=== PATIENT | female | born 1955 | race African-American/Black ===

== ENCOUNTER 2017-02-10 11:53 | Emergency (ER) | payer BC, MEDICARE, OTHER ==
[~2017-02-10] VITALS: Ht 160 cm; Wt 72.5 kg
[~2017-02-10 11:53] MED LIST: 1-ME1LIQ OR; ASPI81TA82 PO; HYDR-3533 PO; LOVA40TA OR; NORC7.5T PO; TOPR100T15 PO
[2017-02-10 11:55] VITALS: BP 136/76; PULSE 88; RESP 20; TEMP 97.8; O2SAT 98
[2017-02-10] MEDS ORDERED: HYDROmorphone HCL PF 1 MG/ML VIAL IM ONE (12:15)
[2017-02-10] MEDS ORDERED: ONDANSETRON ODT 4 MG TAB PO ONE (12:15)
[2017-02-10] MEDS ORDERED: ASPI81CH CHEW (12:18)
[2017-02-10] MEDS ORDERED: LISI40TA PO (12:18)
[2017-02-10] MEDS ORDERED: POTA-255 (12:18)
[2017-02-10] MEDS ORDERED: LOVA40TA PO (12:18)
--- NOTE | 2017-02-10 12:30 | PD ---
HPI Chief Complaint: Headache Time Seen by Provider: 12:08 Travel History International Travel<30 days: No Contact w/Intl Traveler<30days: No Traveled to known affect area: No History of Present Illness HPI PATIENT C/O HEADACHE, 5/10, TOP OF HEAD, NO PHOTOPHOBIA/N/V/D/CP/ABDPAIN AT THIS TIME. NO ALLEVIATING OR AGGRAVATING FACTORS PFSH Past Medical History Cancer: No Cardiovascular Problems: No High Cholesterol: Yes Diabetes: No Diminished Hearing: No Endocrine: No Genitourinary: No Hepatitis: No Hiatal Hernia: No Hypertension: Yes Immune Disorder: No Musculoskeletal: Yes (back problems) Neurologic: No Psychiatric: No Reproductive: No Respiratory: No Thyroid Disease: No Tetanus Vaccination: Never Vaccinated Past Surgical History Gynecologic Surgery: Yes (hysterectomy partial) Hysterectomy: Yes (PARTIAL) Pacemaker: No Family History Family Hypercholesterolemia: Yes Social History Alcohol Use: No Tobacco Use: Yes (1/2 pack a day ) Substance Use: No Allergies-Medications (Allergen,Severity, Reaction): Coded Allergies: No Known Allergies (Verified , 02/10/17) Reported Meds & Prescriptions Reported Meds & Active Scripts Active Reported Potassium (Potassium Gluconate) 600 Mg Tablet Lovastatin 40 Mg Tab 80 Mg PO DAILY Aspirin 81 Mg Chew 81 Mg CHEW DAILY Lisinopril 40 Mg Tab 40 Mg PO DAILY Review of Systems Except as stated in HPI: all other systems reviewed are Neg HENT: Positive: Headaches Physical Exam Narrative GENERAL: SKIN: Warm and dry. HEAD: Atraumatic. Normocephalic. EYES: Pupils equal and round. No scleral icterus. No injection or drainage. ENT: No nasal bleeding or discharge. Mucous membranes pink and moist. NECK: Trachea midline. No JVD. CARDIOVASCULAR: Regular rate and rhythm. RESPIRATORY: No accessory muscle use. Clear to auscultation. Breath sounds equal bilaterally. GASTROINTESTINAL: Abdomen soft, non-tender, nondistended. MUSCULOSKELETAL: Extremities without clubbing, cyanosis, or edema. No obvious deformities. NEUROLOGICAL: Awake and alert. No obvious cranial nerve deficits. Motor grossly within normal limits. Five out of 5 muscle strength in the arms and legs. Normal speech. PSYCHIATRIC: Appropriate mood and affect; insight and judgment normal. Data Data Last Documented VS Vital Signs Date Time Temp Pulse Resp B/P Pulse Ox O2 Delivery O2 Flow Rate FiO2 02/10/17 12:48 99.5 74 18 113/[address] Brain W/O Iv Contrast(Rout) (02/10/17 12:08) Hydromorphone Pf Inj (Dilaudid Pf Inj) (02/10/17 12:15) Ondansetron Odt (Zofran Odt) (02/10/17 12:15) MDM Medical Decision Making Medical Screen Exam Complete: Yes Emergency Medical Condition: Yes Medical Record Reviewed: Yes Differential Diagnosis ICH V TENSION AGUIAR V SINUSITIS Narrative Course CT FOUND PATIENT TO HAVE NO ICH, BUT POSITIVE FOR SINUSITIS Diagnosis Primary Impression: Sinusitis, acute Qualified Code: J01.90 - Acute sinusitis, recurrence not specified, unspecified location Patient Instructions: General Instructions, Sinusitis (ED) Scripts Tramadol (Ultram)50 Mg Tab50 Mg PO Q4H PRN (PAIN) #28 TAB Prov:Claudy Fowler MD 02/10/17 Amoxicillin-Clavulanate (Augmentin)875-125 Mg Tab1 Tab PO BID #20 TAB Prov:Claudy Fowler MD 02/10/17 Disposition: 01 DISCHARGE HOME Condition: Stable Claudy Fowler MD Feb 10, 2017 12:30
[2017-02-10 12:48] VITALS: BP 113/72; PULSE 68; PULSE 74; RESP 18; TEMP 99.5; O2SAT 96
--- NOTE | 2017-02-10 12:48 | RADRPT ---
EXAM DATE/TIME: 02/10/2017 12:31 [facility] COMPARISON: No previous studies available for comparison. INDICATIONS : Headache, dizziness when bending over. RADIATION DOSE: 56.35 CTDIvol (mGy) MEDICAL HISTORY : Hypertension. SURGICAL HISTORY : Hysterectomy. ENCOUNTER: Initial ACUITY: 2 days PAIN SCALE: 0/10 LOCATION: cranial TECHNIQUE: Multiple contiguous axial images were obtained of the head. Using automated exposure control and adj ustment of the mA and/or kV according to patient size, radiation dose was kept as low as reasonably a chievable to obtain optimal diagnostic quality images. DICOM format image data is available electro nically for review and comparison. FINDINGS: CEREBRUM: The ventricles are normal for age. No evidence of midline shift, mass lesion, hemorrhage or acute in farction. No extra-axial fluid collections are seen. POSTERIOR FOSSA: The cerebellum and brainstem are intact. The 4th ventricle is midline. The cerebellopontine angle i s unremarkable. EXTRACRANIAL: The visualized portion of the orbits is intact. There is near total opacification of the left maxilla ry sinus with air-fluid level. There is opacification of multiple left ethmoidal air cells. SKULL: The calvaria is intact. No evidence of skull fracture. CONCLUSION: 1. No acute hemorrhage or mass effect. 2. Acute sinusitis. Yamil Dejesus MD on February 10, 2017 at 12:45 Board Certified Radiologist. This report was verified electronically.
[2017-02-10] MEDS ORDERED: ULTR50TA5 PO (12:55)
[2017-02-10] MEDS ORDERED: AUGM875T3 PO (12:55)
== END 2017-02-10 14:11 | disposition home or self-care (01) ==
LOC: NEPD 11:53
DX: J01.90 Acute sinusitis, unspecified (principal); F17.200 Nicotine dependence, unspecified, uncomplicated; I10 Essential (primary) hypertension
CPT/HCPCS: 70450; 96372; 99285; J1170